=== PATIENT | male | born 1970 | race Caucasian/White ===

== ENCOUNTER → 2017-08-11 | Outpatient (CLI) | payer OTHER ==
[~2017-08-11] VITALS: Ht 195.6 cm; Wt 124.7 kg
[~2017-08-11] MED LIST: CARBAMAZEPINE200 M2 PO; CRESTOR20 MG PO; LATUDA80 MG PO; NEURONTIN 300300 M1 PO; NEURONTIN 400400 M1 PO; PERCOCET PO; ROBAXIN 750 MG750 M1 PO; ROBAXIN500 MG PO; WELLBUTRIN SR150 MG PO; XANAX1 MG PO
--- NOTE | ~2017-08-11 | HPC ---
[facility] [address] [address] PAIN MANAGEMENT CONSULTATION Name: KARAN MUÑOZ Room #: REG ORA [facility]#: [id number] Admission: 08/11/17 Attend Phys: Rj Medel DO Discharge: Date of : 66 Report #: [id number] THIS REPORT FOR: //name// CC: ARLEN Lara DATE OF SERVICE: 08/11/2017 CHIEF COMPLAINT: Lumbar radiculopathy. HISTORY OF PRESENT ILLNESS: As you know, the patient is a 47-year-old male who was referred to our service by Dr. Tom and his team for evaluation of this patient for lumbar radiculopathy. He was seen in clinic at our [facility] office on 07/17/2017. At that visit, diagnosed with chronic lumbar radiculopathy, displacement of lumbar intervertebral disk and neural foraminal stenosis leading to lumbar radicular pain. We discussed the possibility that epidural injections could be beneficial, but started the patient on medication management in hopes of improving pain and reducing his reliance on opioids. We started the patient on gabapentin. He is now taking 900 mg at night and reports today pain level of 6/10. He states his pain is constant, shooting, sharp, periodic; exacerbated with standing; improves with stretching, walking and Neurontin therapy. He is very pleased with response to Neurontin despite the elevated pain level. He states he has been able to return to majority of activities of daily living and has not required any opioid medication since we initiated the therapy. He returns for possible adjustments in his gabapentin therapy. He is hopeful to avoid injections if possible. ALLERGIES: HYDROCODONE. CURRENT MEDICATIONS: Robaxin 750 mg every 4 hours p.r.n., Wellbutrin 150 mg once a day, carbamazepine 200 mg once a day, Crestor 10 mg per day, ibuprofen 600 mg 3 times a day, Tylenol 325 mg 2 tabs every 4 hours, multivitamin 1 tab per day, gabapentin 900 mg p.o. at bedtime. SOCIAL HISTORY: The patient denies tobacco, IV or illicit drug use. Admits to approximately 2 alcoholic beverages per week. 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 IMAGING: No new imaging available. PHYSICAL EXAMINATION: VITAL SIGNS: Blood pressure 125/85, pulse 80, respiratory rate 16 and unlabored, the patient is 97% on room air, height 6 feet 5 inches tall, weight 275 pounds, BMI calculated at 32.6. [address] [address] PAIN MANAGEMENT CONSULTATION Name: KARAN MUÑOZ [id number] Admission: 08/11/17 Attend Phys: Rj Medel DO Discharge: Date of : 68 Report #: [id number] GENERAL: Well-developed, well-nourished, well-hydrated exogenously obese 47-year-old male. He appears stated age, placing current pain score 6/10. HEENT: Normocephalic, atraumatic. Pupils equal, round, reactive to light. Extraocular muscles are intact. Sclerae nonicteric without injection. NEUROLOGIC: Cranial nerves 2-12 grossly intact. Speech is fluent. LUNGS: Clear. No wheeze, rhonchi or rales. CARDIOVASCULAR: Regular. No appreciable gallop or rub. ABDOMEN: Soft, nontender, nondistended, normoactive bowel sounds. EXTREMITIES: Show no clubbing, no cyanosis, no edema. MUSCULOSKELETAL: Lower extremity strength is symmetrical again today 5/5 with the exception of the left quadricep, which shows strength about 4/5 when compared to the right. Decreased sensation tactilely over anterior portion of the left thigh and knee when compared to the right. Seated straight leg raising negative. Supine straight leg raising positive. SEAMUS test negative. Modified Gaenslen's positive for axial low back pain. ASSESSMENT: 1. Symptomatic lumbar radiculopathy. 2. Displacement of lumbar intervertebral disk with radiculopathy. 3. Lumbosacral spondylosis with radiculopathy. 4. Neural foraminal stenosis of lumbar spine. 5. Facet arthropathy of lumbar spine. 6. Lumbar degeneration. 7. Chronic intractable pain. PLAN: 1. The patient returns today in followup visit for medication management. At present, he is doing well with the gabapentin. He is at 900 mg at night, but continues to experience some issues during the daytime hours for which he places pain score 3/10. We will make the following adjustments in his medication in hopes of improving pain. 2. The patient will continue on the gabapentin. We will begin 1 tab in the morning at 300 mg for the next 7 days, continuing the 3 tabs at night. At the end of that 7 days, then increase the gabapentin in the morning to 600 mg in the morning, continuing 900 mg at night. The patient was advised to watch for side effects of somnolence, decrease mental acuity, disorientation and confusion with the use of this medication. If he notes any side effects, reduce to the dose prior to the side effects, continue that dose for another 7 days, then reattempt escalation if he has not reached the target dose of 600 mg morning and 900 mg at night. He was given #150 tablets of gabapentin with 5 refills, assuming improvement in symptoms, so he does not have to return as often. 3. We will be available to see the patient back in followup visit on an as needed basis. We are hopeful that the changes made today will improve the patient's overall pain. If he does have some issues with the gabapentin, he is to contact our clinic by phone. We will make adjustments if we can via [facility] [address] [place] [address] PAIN MANAGEMENT CONSULTATION Name: KARAN MUÑOZ [id number] Admission: 08/11/17 Attend Phys: Rj Medel DO Discharge: Date of : 66 Report #: [id number] telephone. If this does not work, we will have the patient return to discuss further. <ELECTRONICALLY SIGNED> By: Rj Medel DO 08/19/17 0902 [id number] 43 Rj Medel DO /nt
[2017-08-11 10:13] VITALS: BP 125/85
== END ==
LOC: PAIN 06:53
DX: M51.16 Intervertebral disc disorders with radiculopathy, lumbar region (principal); M47.27 Other spondylosis with radiculopathy, lumbosacral region; M48.061 Spinal stenosis, lumbar region without neurogenic claudication; M46.86 Other specified inflammatory spondylopathies, lumbar region; M47.896 Other spondylosis, lumbar region; G89.29 Other chronic pain

== ENCOUNTER → 2018-05-26 | Outpatient (CLI) | payer OTHER ==
[~2018-05-26] VITALS: Ht 195.6 cm; Wt 133.2 kg
--- NOTE | ~2018-05-26 | HPC ---
[facility] [place] [address] [place] [address] PAIN MANAGEMENT CONSULTATION Name: KARAN MUÑOZ Room #: REG ORA Ramesh#: [id number] Admission: 05/26/18 Attend Phys: Rj Medel DO Discharge: Date of : 66 Report #: [id number] THIS REPORT FOR: //name// CC: VAN Hendrix MD DATE OF SERVICE: 05/26/2018 PRIMARY CARE PHYSICIAN: Van Proctor DO. CHIEF COMPLAINT: Low back pain, left lower extremity pain and paresthesias. HISTORY OF PRESENT ILLNESS: As you know, the patient is a 47-year-old male, referred to our service by Dr. Vincenzo Tom, his neurosurgeon, for evaluation of the lumbar radiculopathy. The patient was originally seen in our clinic at [facility] and changed his care over to our [facility] office for convenience. The patient has been seen and diagnosed with lumbar radiculopathy secondary to the displacement of lumbar intervertebral disk. He also has facet changes in the lumbar spine and neural foraminal stenosis. He has been treated conservatively per his request with the use of gabapentin, which has been extremely beneficial for pain control. Unfortunately, he has begun to lose efficacy with the gabapentin. He is taking 900 mg in the morning, 300 mg at noon and 900 mg at night; no side effects. He returns to discuss treatment options as he has had recurrence of symptoms, for which he places pain score now 4-8/10. No new injury, no new trauma and no changes in medical treatment since our last visit. He indicates the pain is sharp, aching and sore, exacerbated with sitting for long periods of time and standing for long periods of time and improves with medications, stretching, cold compresses, TENS unit and gabapentin. ALLERGIES: HYDROCODONE AND ACETAMINOPHEN. CURRENT MEDICATIONS: Alprazolam 1 mg 3 times a day; gabapentin 900 mg in the morning, 300 mg at noon and 900 mg at night; methocarbamol 750 mg twice a day; lovastatin 20 mg once a day; bupropion 150 mg once a day; Latuda 80 mg per day and carbamazepine 200 mg twice a day. SOCIAL HISTORY: The patient denies tobacco, IV or illicit drug use. Admits to 2 alcoholic beverages per week. He is working, not receiving workmen's compensation. He is accompanied by his , who is present in the room today. IMAGING: No new imaging available. PHYSICAL EXAMINATION: [facility] [address] [place] [address] PAIN MANAGEMENT CONSULTATION Name: KARAN MUÑOZ Room #: REG [facility].#: [id number] Admission: 05/26/18 Attend Phys: Rj Medel DO Discharge: Date of : 66 Report #: [id number] VITAL SIGNS: Blood pressure 130/92, pulse 74 and respiratory rate 16 and unlabored. The patient is 96% on room air. Height 6 feet 5 inches tall, weight 293.6 pounds and BMI calculated 34.8. GENERAL: Well-developed, well-nourished, well-hydrated exogenously obese 47-year-old male, appearing his stated age, placing current pain score 4-8/10. HEENT: Normocephalic, atraumatic. Pupils equal, round and reactive to light. Extraocular muscles are intact. Sclerae nonicteric, without injection. NEUROLOGIC: Cranial nerves 2-12 grossly intact. Speech is fluent. The patient deemed a good historian. LUNGS: Clear. No wheezing, rhonchi or rales. CARDIOVASCULAR: Regular. No appreciable gallop, no rub. ABDOMEN: Soft, nontender and nondistended. Normoactive bowel sounds. EXTREMITIES: Show no clubbing, no cyanosis, no edema. MUSCULOSKELETAL: Lower extremity strength is symmetrical, 5/5, except the one skin over the left quadriceps, which shows reduced strength of 4+/5. There does appear to be some giveaway strength secondary to pain. He reports decreased sensation over the anterior portion of the left thigh when compared to the right dermatomal distribution of L4. Seated straight leg raising negative. Supine straight leg raising positive for left. Gerhard's test negative. Modified Gaenslen's positive for axial low back pain. ASSESSMENT: 1. Lumbar radiculopathy. 2. Displacement of lumbar intervertebral disk with radiculopathy. 3. Lumbosacral spondylosis with radiculopathy. 4. Neural foraminal stenosis of the lumbar spine. 5. Facet arthropathy of the lumbar spine. 6. Lumbar degeneration. 7. Chronic intractable pain. PLAN: 1. The patient returns today in followup visit to discuss treatment options with recurrent pain. He had done very well with previous dosing of gabapentin. In fact, he has been on gabapentin for nearly one year with good effects. He is denying side effects at current dosing. We discussed various options for treatment to assist in pain control. We discussed today possibly escalating his gabapentin dose by utilizing a long-acting form of gabapentin Gralise. The patient indicated that he attempted to increase his morning and noon dose in the past with immediate-release formulation and his side effects became quite profound. These were sleepiness, disorientation and confusion, which he cannot have on the job site. He did notice improvement in symptoms with de-escalation, but could not maintain that level. We have suggested the possibility of utilizing Gralise a once a day dose 2 hours before bedtime with a small meal, which can reduce the potential for the side effects of immediate-release gabapentin, but continue to provide similar [facility] [address] [place] [address] PAIN MANAGEMENT CONSULTATION Name: KARAN MUÑOZ FROILAN Room #: REG ORA Chandler#: [id number] Admission: 05/26/18 Attend Phys: Rj Medel DO Discharge: Date of : 66 Report #: [id number] efficacy. We will trial the patient on this medication today. We also discussed with the patient epidural injections under fluoroscopic guidance, for which he was originally referred to our service. He states he has discussed this with friends and family, who indicate that they are the most painful things that I have ever done and they do not last or do not help. I have discussed this with the patient today, without knowing the pathology those individuals and the reason for the injections, there is no way to determine efficacy. We also discussed the patient's possible use of a spinal cord stimulator. This may provide some benefit for the patient. We discussed the risks and the benefits of that procedure and the procedure for implantation. He is going to consider this as an option. At present, he does not wish to move forward with a psychiatric evaluation, but does understand he has to undergo that before we can even begin the process of authorizations. We also discussed surgical options. After reviewing risks and benefits of all proposed treatment options, the patient chose to move forward with medication management. 2. The patient was provided a sample of Gralise. He will initiate the dose at 900 mg p.o. q. 2 hours prior to bedtime. The patient will then escalate the dose to 1200 mg as directed by the titration pack. He will continue that for 4 days, then escalate 1500 mg dose for 4 days, and if still no affect and no side effects, then jump to 1800. He was given a sample pack to do so. Once he reaches an efficacious level with the Gralise and is noticing no side effects, we would be more than willing to provide a full prescription. Again, we are trialing the long-acting form of Gralise due to the side effects he experienced escalating his typical immediate-release gabapentin dosing. 3. The patient will contact our clinic in regards to the Gralise therapy. We will provide a prescription for him. If he wishes to return to discuss other options, he may do so. <ELECTRONICALLY SIGNED> By: Rj Medel DO 06/01/18 0755 [id number] [id number] Rj Medel DO /nt
[2018-05-26 09:30] VITALS: BP 130/92
== END ==
LOC: PAIN 06:39
DX: M47.26 Other spondylosis with radiculopathy, lumbar region (principal); M47.896 Other spondylosis, lumbar region; M48.061 Spinal stenosis, lumbar region without neurogenic claudication; M25.552 Pain in left hip; M25.562 Pain in left knee; G89.4 Chronic pain syndrome

== ENCOUNTER → 2018-06-22 | Outpatient (CLI) | payer OTHER ==
[~2018-06-22] VITALS: Ht 195.6 cm; Wt 135.1 kg
[~2018-06-22] MED LIST changes: +GRALISE600 MG PO; +HORIZANT600 MG PO
--- NOTE | ~2018-06-22 | HPC ---
[facility] [address] [place] [address] PAIN MANAGEMENT CONSULTATION Name: KARAN MUÑOZ Room #: REG [facility].#: [id number] Admission: 06/22/18 Attend Phys: Rj Medel DO Discharge: Date of : 66 Report #: [id number] THIS REPORT FOR: //name// CC: Van Carter DATE OF SERVICE: 06/22/2018 CHIEF COMPLAINT: Low back pain, left lower extremity pain and paresthesias. HISTORY OF PRESENT ILLNESS: As you know, the patient is a pleasant 47-year-old male, referred to our service by Dr. Vincenzo Tom, his neurosurgeon, for evaluation of lumbar radiculopathy. The patient was originally seen in our clinic at [facility], changed his care to our [facility] office for convenience and scheduling issues. He has been diagnosed with lumbar radiculopathy secondary to the displacement of a lumbar intervertebral disk. He was started on gabapentin therapy with extremely good benefit, but unfortunately we began to lose efficacy with therapy. We escalated his dose in an attempt to gain improvement in pain. This led to side effects of somnolence, decreased mental acuity, disorientation, confusion, mental slowing. We subsequently changed the patient over to Gralise, a once a day dosing of gabapentin in the form of a medication carrying agent that allows the medication to be released over a 24-hour period. He did very well with this medication at 1800 mg without side effects, but unfortunately third libertarian payer did not wish to cover this medication. He returns today in followup visit having continued side effects to the immediate release gabapentin, wishing to make changes in his therapy to either go back on the Gralise or to trial Horizant, a long-acting medication in formulation of gabapentin. He is placing pain today at around 6-7/10. ALLERGIES: HYDROCODONE, ACETAMINOPHEN. CURRENT MEDICATIONS: Alprazolam, gabapentin, methocarbamol, lovastatin, bupropion, Latuda, carbamazepine. SOCIAL HISTORY: The patient denies tobacco, IV or illicit drug use, admits to 2 alcoholic beverages per week. He is working, not receiving workmen's compensation, unaccompanied today. IMAGING: No new imaging available. PHYSICAL EXAMINATION: VITAL SIGNS: Blood pressure 126/92, pulse is 63, respiratory rate 20 and unlabored. The patient is 97% on room air, height 6 feet 5 inches tall, weight [facility] [address] [place] [address] PAIN MANAGEMENT CONSULTATION Name: KARAN MUÑOZ Room #: REG [facility]#: [id number] Admission: 06/22/18 Attend Phys: Rj Medel DO Discharge: Date of : 68 Report #: [id number] 297.8 pounds, BMI calculated 35.3. GENERAL: Well-developed, well-nourished, well-hydrated 47-year-old male appearing stated age, placing current pain score 6-7/10. HEENT: Head normocephalic, atraumatic. Pupils equal, round, reactive to light. Extraocular muscles are intact. Sclerae nonicteric, without injection. NEUROLOGIC: Cranial nerves 2-12 grossly intact. Speech is fluent. LUNGS: Clear, no wheeze, rhonchi or rales. CARDIOVASCULAR: Regular. No appreciable gallop, no rub. ABDOMEN: Soft, nontender, nondistended. EXTREMITIES: Show no clubbing, no cyanosis, no edema. MUSCULOSKELETAL: Lower extremity strength appears symmetrical 5/5, muscle bulk and tone equal and symmetrical when comparing left lower extremity to right. There does appear to be a slight reduction in strength over the left quadriceps when compared to the right, rating muscle strength at this level a 4.5/5. There does appear to be decreased tactile sensation along the anterior thigh compared to the right. Dermatomal distribution appears to be L4. Seated straight leg raising negative. Supine straight leg raising positive on the left. SEAMUS test negative. Modified Gaenslen's positive for axial low back pain. Gait is mildly antalgic favoring left lower extremity over right. ASSESSMENT: 1. Lumbar radiculopathy. 2. Displacement of lumbar intervertebral disk with radiculopathy. 3. Lumbosacral spondylosis with radiculopathy. 4. Neuroforaminal stenosis of lumbar spine. 5. Facet arthropathy of the lumbar spine. 6. Lumbar degeneration. 7. Chronic intractable pain. PLAN: 1. The patient returns today in followup visit indicating improvement with Gralise at 1800 mg dose. He is denying any side effects of sleepiness, disorientation, confusion and mental slowing. He feels that the medication is beneficial, but unfortunately it appears he is not being able to continue the medication due to lack of coverage of this medication with his current insurer. The patient was unable to tolerate escalating doses of immediate release gabapentin due to somnolence and dysphoric effects leading to difficulty with him mentating appropriately. We placed the patient on Gralise, regained efficacy and improvement in the side effects. 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 We have offered to the patient a refill prescription of the Gralise assuming coverage can be obtained or the patient can trial Horizant at 600 mg 3 tabs p.o. at bedtime, which is another long-acting form of gabapentin. [address] [address] PAIN MANAGEMENT CONSULTATION Name: KARAN MUÑOZ FROILAN Room #: REG ORA [facility]#: [id number] Admission: 06/22/18 Attend Phys: Rj Medel DO Discharge: Date of : 66 Report #: [id number] 2. The patient was provided prescription of Gralise 600 mg tabs 3 tabs p.o. at bedtime, #90 with 2 refills, 3 months' worth of medication. The patient was advised if coverage is not going to be available for this, he can trial the Horizant 600 mg tablets 3 tabs p.o. at bedtime. I have given the patient #90 tablets and 2 refills. The patient will attempt to fill either of these 2 prescriptions if possible. We recommend that he remain on a long-acting form of gabapentin whether this is covered with Gralise or Horizant, it has to do with the formulary of the insurer, but should be covered. 3. We will see the patient back in followup visit for possible epidural injection. He is considering this as an option assuming he cannot gain efficacy with medication. We are hopeful the patient will see improvement on medication and be able to receive these medications with good insurance coverage, but if he cannot we would recommend epidural injection for which he has established an appointment next week. <ELECTRONICALLY SIGNED> By: Rj Medel DO 06/23/18 0855 [id number] Rj Medel DO /nt
[2018-06-22 10:18] VITALS: BP 126/92
== END ==
LOC: PAIN 09:20
DX: M47.26 Other spondylosis with radiculopathy, lumbar region (principal); G89.4 Chronic pain syndrome; M48.061 Spinal stenosis, lumbar region without neurogenic claudication; M46.86 Other specified inflammatory spondylopathies, lumbar region; M51.36 Other intervertebral disc degeneration, lumbar region